=== PATIENT | female | born 1990 | race Caucasian/White ===

== ENCOUNTER 2016-06-16 15:20 | Emergency (ER) | payer MEDICAID ==
[~2016-06-16] VITALS: Ht 160 cm; Wt 60.0 kg
[2016-06-16 15:40] VITALS: Ht 160 cm; Wt 60.0 kg
--- NOTE | 2016-06-16 15:58 | ERA ---
ER Documentation Chief Complaint Date/Time DATE: 06/16/16 TIME: 15:57 Chief Complaint SORE THROAT - LMP 01/06/16 HPI The patient is a 25-year-old female, presenting to the ER because of intermittent cough for 1 week, nasal congestion, nasal discharge, painful urination. She denies fever, chills, neck pain, chest pain, dyspnea, abdominal pain, vomiting, diarrhea. He is 6 months , denies any vaginal bleeding , vaginal discharge. She does not smoke, drink Past medical history: None Past surgical history: Right elbow ROS All systems reviewed and are negative except as per history of present illness. Medications Home Meds Active Scripts Acetaminophen* (Tylenol*) 325 Mg Tablet, 2 TAB PO Q6 Y for PAIN AND OR ELEVATED TEMP, #20 TAB Prov:TIESHA BECK MD 06/16/16 Guaifenesin-Dextromethorphan* (Robitussin* DM) 100MG/10MG/5ML Syrup, 10 ML PO Q6H, #120 ML Prov:TIESHA BECK MD 06/16/16 Cephalexin* (Keflex*) 500 Mg Capsule, 500 MG PO Q6, #40 CAP Prov:TISEHA BECK MD 06/16/16 Allergies Allergies: Coded Allergies: No Known Allergy (Verified , 03/13/14) PMhx/Soc History of Surgery: No Anesthesia Reaction: No Hx Neurological Disorder: No Hx Respiratory Disorders: No Hx Cardiac Disorders: No Hx Psychiatric Problems: No Hx Miscellaneous Medical Probl: No Hx Alcohol Use: No Hx Substance Use: No Hx Tobacco Use: No Physical Exam Vitals Vital Signs Date Time Temp Pulse Resp B/P Pulse Ox O2 Delivery O2 Flow Rate FiO2 06/16/16 15:40 97.5 96 19 110/59 95 Physical Exam Const: No acute distress. Head: Atraumatic. Eyes: Normal Conjunctiva. ENT: Normal External Ears, Nose and Mouth. Oropharynx and bilateral tympanic membrane within normal limits Neck: Full range of motion. No meningismus. Resp: Clear to auscultation bilaterally. Cardio: Regular rate and rhythm, no murmurs. Abd: Soft, non distended, normal bowel sounds, non tender. Skin: No petechiae or rashes. Back: No midline or flank tenderness. Ext: No cyanosis, or edema. Neur: Awake and alert. No focal deficit Psych: Normal Mood and Affect. Results 24 hrs Laboratory Tests Test 06/16/16 16:53 Bedside Urine Blood Negative Bedside Urine Glucose (UA) Negative Bedside Urine Ketones (LAB) Negative Bedside Urine Leukocyte Esterase (L 2+ Bedside Urine Nitrite (LAB) Negative Bedside Urine Protein (LAB) Negative Bedside Urine pH (LAB) 7.0 Procedures/MDM MEDICAL MAKING DECISION: The patient is a 35-year-old female, presenting with acute viral syndrome, acute cystitis. The differential diagnoses considered include but are not limited to influenza, viral syndrome, pneumonia, cystitis, pyelonephritis Departure Diagnosis: Primary Impression: UTI (urinary tract infection) Additional Impression: Viral syndrome Condition: Good Comments She was discharged with Robitussin-DM, Tylenol, Keflex I discussed the findings with the patient. I advised the patient to follow-up with the primary physician in about 1-2 days, sooner if needed and return if any concern. TIESHA BECK MD Jun 16, 2016 15:57
[2016-06-16 16:53] LABS: URINE BLOOD (Dip) POC Negative (NEGATIVE)
[2016-06-16] MEDS ORDERED: CEPH-443 PO (17:04)
[2016-06-16] MEDS ORDERED: UDROBDM PO (17:05)
[2016-06-16] MEDS ORDERED: ACET325T33 PO (17:05)
== END 2016-06-16 17:34 | disposition home or self-care (01) ==
LOC: FTE 15:20
DX: N39.0 Urinary tract infection, site not specified (principal); B34.9 Viral infection, unspecified
CPT/HCPCS: 81003; Z7502; 99283